=== PATIENT | female | born 1990 | race Caucasian/White ===

== ENCOUNTER 2017-07-18 15:00 | Emergency (ER) | payer OTHER, BC, MEDICAID ==
[2017-07-18] MEDS ORDERED: Ketorolac 60 MG/2 ML SDV IM ONE (15:04)
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
[2017-07-18] MEDS ORDERED: Acetaminophen/Codeine 300-30 MG Tab ONE (15:15)
--- NOTE | 2017-07-19 23:36 | CR ---
DATE OF SERVICE: 07/18/2017 CLINICAL DATA: PA CHEST AND RIGHT RIBS: The heart size is normal. The lungs are clear. No rib abnormalities. No displaced fractures. No pneumothorax. No pleural effusions. [id number] MTDD
== END 2017-07-18 15:43 | disposition home or self-care (01) ==
LOC: LB.ED 15:00
DX: S20.211A Contusion of right front wall of thorax, initial encounter (principal); Z91.018 Allergy to other foods; V03.90XA Pedestrian on foot injured in collision with car, pick-up truck or van, unspecified whether traffic or nontraffic accident, initial encounter; Y92.410 Unspecified street and highway as the place of occurrence of the external cause
CPT/HCPCS: 71101; 96372; 99284; A9270; J1885